=== PATIENT | female | born 1955 | race American Indian/Alaskan Native ===

== ENCOUNTER 2019-04-30 16:34 | Emergency (ER) | payer MEDICARE ==
--- NOTE | 2019-04-30 17:09 | Event Note ---
ED Screening Note Date of service: 04/30/19 Time: 17:09 ED Screening Note: 63 yo F with hx HTN, fibromyalgia, presents with BOYCE x 4 days. Reports associated dizziness, nausea. Reports compliance w/ BP meds. Has taken tramadol, tylenol without relief. No obvious neuro deficits on exam. Pt A&O x 3. This initial assessment/diagnostic orders/clinical plan/treatment(s) is/are subject to change based on patients health status, clinical progression and re- assessment by fellow clinical providers in the ED. Further treatment and workup at subsequent clinical providers discretion. Patient/guardian urged not to elope from the ED as their condition may be serious if not clinically assessed and managed. Initial orders include: CT Head labs
[2019-04-30 17:57] LABS: Eosinophils % (Auto) 0.9 % (0.0-4.3); Hematocrit 38.2 % (30.3-42.9); Lymphocytes # (Auto) 0.8 K/mm3 (1.2-5.4); Lymphocytes % (Auto) 18.6 % (13.4-35.0); Mean Corpuscular HGB Conc 34 % (30-34); Mean Corpuscular Volume 92 fl (79-97); Monocytes # (Auto) 0.7 K/mm3 (0.0-0.8); Monocytes % (Auto) 15.3 % (0.0-7.3); Platelet Count 256 K/mm3 (140-440); Red Blood Count 4.14 M/mm3 (3.65-5.03); Red Cell Distribution Width 13.4 % (13.2-15.2)
[2019-04-30 18:13] LABS: Calcium 9.1 mg/dL (8.4-10.2)
--- NOTE | 2019-04-30 19:05 | Cat Scan Report ---
NONENHANCED CT SCAN OF THE HEAD: INDICATION / CLINICAL INFORMATION: 63 years Female; headache. TECHNIQUE: Routine CT head without contrast. All CT scans at this location are performed using CT dos e reduction for ALARA by means of automated exposure control. COMPARISON: None. FINDINGS: BRAIN / INTRACRANIAL CONTENTS: No acute hemorrhage, mass effect, midline shift, hydrocephalus, or acu te, large territorial infarct. No focal area of encephalomalacia. However, cortical involution is see n. Volume loss is also seen in the cerebellar vermis. Hippocampi are normal. Periventricular and deep hemispheric white matter are normal. CRANIOCERVICAL JUNCTION: No significant abnormality. ORBITS: No significant abnormality of visualized orbits. SINUSES / MASTOIDS: No significant abnormality of the visualized paranasal sinuses or mastoid air sabiha ls. ADDITIONAL FINDINGS: None. IMPRESSION: No focal parenchymal lesion in the brain Signer Name: Noe Ramirez MD Signed: 04/30/2019 7:01 PM Workstation Name: [id number]
[2019-04-30] MEDS: KETOROLAC 30 MG/1 ML INJ IV STA (22:08)
[2019-04-30] MEDS: ONDANSETRON 4 MG/2 ML INJ IV STA (22:08)
[2019-04-30] MEDS: METOCLOPRAMIDE 10 MG/2 ML INJ IV STA (22:08)
[2019-04-30] MEDS: diphenhydrAMINE 50 MG/ML VIAL IV STA (22:08)
[2019-04-30] MEDS: SODIUM CHLORIDE 0.9% 1000 ML 1,000 ML IV ONE (22:08)
--- NOTE | 2019-04-30 23:36 | Emergency Department Report ---
ED Headache HPI - General Chief Complaint: Dizziness Stated Complaint: N/DIZZY/PAIN IN BACK OF HEAD Time Seen by Provider: 04/30/19 20:09 - History of Present Illness Timing/Duration: waxing and waning, other (2-3 days) Quality: moderate Head Injury Location: frontal, occipital Recent Head Trauma: occasional headaches Associated Symptoms: other (that his headache is worse than previous). denies: confusion, fatigue, facial pain, loss of consciousness, nasal drainage, seizures, sinus infection, vision changes Allergies/Adverse Reactions: Allergies No Known Allergies Allergy (Verified 04/30/19 16:37) Home Medications: Ambulatory Orders Butalb/Acetaminophen/Caffeine [Fioricet 50-300-40 mg CAP] 1 cap PO Q6HR PRN #14 cap 04/30/19 ED Review of Systems ROS: Stated complaint: N/DIZZY/PAIN IN BACK OF HEAD Other details as noted in HPI Comment: All other systems reviewed and negative ED Past Medical Hx - Past Medical History Previous Medical History?: Yes Hx Hypertension: Yes - Surgical History Past Surgical History?: No - Social History Smoking Status: Former Smoker Substance Use Type: None - Medications Home Medications: Home Medications Medication Instructions Recorded Confirmed Last Taken Type Butalb/Acetaminophen/Caffeine 1 cap PO Q6HR PRN #14 cap 04/30/19 Unknown Rx [Fioricet 50-300-40 mg CAP] ED Physical Exam - General Limitations: No Limitations General appearance: alert, in no apparent distress - Head Head exam: Present: atraumatic, normocephalic - Eye Eye exam: Present: normal appearance, PERRL, EOMI. Absent: conjunctival injection, nystagmus Pupils: Present: normal accommodation - ENT ENT exam: Present: normal exam, normal orophraynx, mucous membranes moist - Neck Neck exam: Present: normal inspection, full ROM. Absent: tenderness, meningismus, lymphadenopathy - Respiratory Respiratory exam: Present: normal lung sounds bilaterally. Absent: respiratory distress, wheezes, rhonchi, chest wall tenderness, accessory muscle use, decreased breath sounds - Cardiovascular Cardiovascular Exam: Present: regular rate, normal rhythm. Absent: systolic murmur, diastolic murmur, rubs, gallop - GI/Abdominal GI/Abdominal exam: Present: soft, normal bowel sounds - Extremities Exam Extremities exam: Present: normal inspection - Back Exam Back exam: Present: normal inspection. Absent: CVA tenderness (R), CVA tenderness (L) - Neurological Exam Neurological exam: Present: alert, oriented X3, CN II-XII intact, normal gait, reflexes normal, other (GCS 15). Absent: motor sensory deficit - Psychiatric Psychiatric exam: Present: normal affect, normal mood - Skin Skin exam: Present: warm, dry, intact, normal color. Absent: rash ED Course Vital Signs 04/30/19 04/30/19 04/30/19 17:03 22:08 22:09 Temperature 98.8 F 98.6 F Pulse Rate 86 85 Respiratory 20 20 20 Rate Blood Pressure 200/107 Blood Pressure 200/107 179/114 [Left] O2 Sat by Pulse 97 99 Oximetry 04/30/19 22:56 Temperature Pulse Rate 79 Respiratory 20 Rate Blood Pressure Blood Pressure 163/79 [Left] O2 Sat by Pulse 99 Oximetry ED Medical Decision Making - Lab Data Result diagrams: 04/30/19 17:15 04/30/19 17:15 - Radiology Data Radiology results: report reviewed Shows no acute processes [facility] [address] [place] [address] Cat Scan Report Signed Patient: ATUL FLOREZ MR#: [id number] : 1955 Acct:[id number] Age/Sex: 63 / F ADM Date: 04/30/19 Loc: ED Attending Dr: Ordering Physician: MAGUI MARINO MD Date of Service: 04/30/19 Procedure(s): CT head/brain wo con Accession Number(s): [id number] cc: MAGUI MARINO MD NONENHANCED CT SCAN OF THE HEAD: INDICATION / CLINICAL INFORMATION: 63 years Female; headache. TECHNIQUE: Routine CT head without contrast. All CT scans at this location are performed using CT dose reduction for ALARA by means of automated exposure control. COMPARISON: None. FINDINGS: BRAIN / INTRACRANIAL CONTENTS: No acute hemorrhage, mass effect, midline shift, hydrocephalus, or acute, large territorial infarct. No focal area of encephalomalacia. However, cortical involution is seen. Volume loss is also seen in the cerebellar vermis. Hippocampi are normal. Periventricular and deep hemispheric white matter are normal. CRANIOCERVICAL JUNCTION: No significant abnormality. ORBITS: No significant abnormality of visualized orbits. SINUSES / MASTOIDS: No significant abnormality of the visualized paranasal sinuses or mastoid air cells. ADDITIONAL FINDINGS: None. IMPRESSION: No focal parenchymal lesion in the brain Signer Name: Noe Ramirez MD Signed: 04/30/2019 7:01 PM Workstation Name: [id number] Transcribed By: FRANCESCO Dictated By: Noe Meyer MD Electronically Authenticated - Medical Decision Making MDM This patient presents with a headache most consistent with tension headache, hypertensive headache. Differential diagnosis includes migraine versus tension type headache. No headache red flags. Neurologic exam without evidence of meningismus, focal neurologic findings. Presentation not consistent with acute intracranial bleed to include SAH (lack of risk factors, headache history). Presentation not consistent with acute [employer] infection to include meningitis or brain abscess, Temporal arteritis unlikely, as is acute angle closure glaucoma given history and physical findings. Presentation not consistent with other acute, emergent causes of headache at this time. Plan to treat symptomatically with pain medication. No indication for imaging/LP at this time. Plan: pain medication, CT brain normal, serial reassessment pain control after migraine cocktail given Mismeasured also have some issues with hypertension and blood pressure was initially 200 systolic upon arrival to the emergency department was 161 headache became under control. She is taking candy Lillian is present time she's been advised to follow with her primary care provider for further treatment options for hypertension Critical care attestation.: If time is entered above; I have spent that time in minutes in the direct care of this critically ill patient, excluding procedure time. ED Disposition Clinical Impression: Cephalgia, HTN (hypertension) Disposition: - TO HOME OR SELFCARE Is pt being admited?: No Does the pt Need Aspirin: No Condition: Stable Instructions: Acute Headache (ED), Hypertension (ED), DASH Eating Plan (ED) Prescriptions: Butalb/Acetaminophen/Caffeine [Fioricet 50-300-40 mg CAP] 1 cap PO Q6HR PRN #14 cap PRN Reason: Headache Referrals: [facility] [Provider Group] - 3-5 Days YISEL DOMÍNGUEZ MD [Staff Physician] - 3-5 Days
[2019-05-01 00:55] VITALS: BP 155/82
== END 2019-05-01 00:55 | disposition home or self-care (01) ==
LOC: ED 16:34
DX: R51 Headache (principal); I10 Essential (primary) hypertension; R42 Dizziness and giddiness; Z87.891 Personal history of nicotine dependence; Z79.899 Other long term (current) drug therapy
CPT/HCPCS: 36415; 70450; 80048; 85025; 96361; 96374; 96375; 99284; J1200; J1885; J2405; J2765; J7030